=== PATIENT | female | born 1980 ===

== ENCOUNTER 2021-03-08 22:21 | Emergency (ER) | payer OTHER, MEDICAID ==
[~2021-03-08] VITALS: Ht 152.4 cm; Wt 115.6 kg
[~2021-03-08 22:21] MED LIST: HYDR-3241 PO; OMEP40CA8 PO; OXYC1TAB7 PO; POLY17PO5 PO
--- NOTE | 2021-03-09 00:04 | NUR ---
PT AMBULATED TO ROOM, AND C/O PAIN TO LOWER ABD BACK AND SAYS IT RADIATES TO HER ABDOMEN. MD TO BEDSIDE TO EVAL PT.
[2021-03-09] MEDS ORDERED: ONDANSETRON 2MG/ML, 2ML ONE (00:26)
[2021-03-09] MEDS ORDERED: MORPHINE SULFATE 4 MG/ML, 1ML ONE ×2 (00:27→01:37)
[2021-03-09 00:30] LABS: BASOPHILS % (AUTO) 1 % (0-1); EOSINOPHILS % (AUTO) 1 % (1-7); LYMPHOCYTES % (AUTO) 24 % (22-44); MEAN CORPUSCULAR HEMOGLOBIN 23.6 pg (27.0-34.8); MEAN CORPUSCULAR HGB CONC 31.6 g/dL (32.4-35.8); MEAN PLATELET VOLUME 8.2 fL (7.4-10.4); MONOCYTES % (AUTO) 8 % (2-9); NEUTROPHILS % (AUTO) 67 % (42-75); PLATELET COUNT 282 x10^3/uL (130-400); RED BLOOD COUNT 4.46 x10^6/uL (3.82-5.3); RED CELL DISTRIBUTION WIDTH 16.5 % (9.6-15.2)
[2021-03-09] MEDS ORDERED: SODIUM CHLORIDE 0.9% 1,000ML IV ONE (00:30)
[2021-03-09] MEDS ORDERED: SODIUM CHLORIDE FLUSH 10ML SYR IVF ONE (00:30)
[2021-03-09] MEDS ORDERED: ONDANSETRON 2MG/ML, 2ML IVPush ONE (00:30)
[2021-03-09] MEDS: MORPHINE SULFATE 4 MG/ML, 1ML IVPush PRN ×2 (00:40→01:40)
[2021-03-09 00:41] LABS: ALBUMIN 3.5 g/dL (3.4-5.0); ANION GAP 7 mmol/L (5-15); CALCIUM 8.6 mg/dL (8.5-10.1); CHLORIDE 110 mmol/L (98-107); CREATININE 0.81 mg/dL (0.55-1.02)
--- NOTE | 2021-03-09 00:41 | NUR ---
PT PROVIDED VERY SMALL AMOUNT OF URINE AND SAMPLE SENT TO LAB. PT C/O PAIN TO ABDOMEN STILL, AND HAVING DIFFICULTY SITTING STILL. PT AMBULATED TO RESTROOM FOR UA SAMPLE. AFTER, PT WAS MEDICATED FOR PAIN AND NAUSEA, SEE EMAR. PT NOW RESTING COMFORTABLY IN BED WAITING ON LAB RESULTS.
[2021-03-09 00:49] LABS: MICROSCOPIC INDICATED
--- NOTE | 2021-03-09 01:30 | NUR ---
TASK RN: PT RESTING ON GURNEY, NAD, FLUIDS RUNNING, NO OTHER CHANGES IN CONDITION. Patient is resting comfortably in bed. Bed in lowest, rails engaged, call light on lap. SANTY.
--- NOTE | 2021-03-09 01:56 | NUR ---
TASK RN: PT. MEDICATED PER OCT WITH 2ND DOSE OF MORPHINE FOR CONTINUED 10/10 RIGHT FLANK PAIN. STRAIGHT CATH UA COLLECTED AND WALKED TO LAB. PT. TOLERATED WELL.
[2021-03-09 02:20] LABS: MICROSCOPIC NOT IND
--- NOTE | 2021-03-09 02:29 | NUR ---
RECIEVED REPORT FROM MAYE RN
[2021-03-09 03:07] VITALS: BP 148/76
--- NOTE | 2021-03-09 03:14 | NUR ---
Patient given discharge instructions and they have confirmed that they understand the instructions. Patient ambulatory with steady gait. NAD, all questions answered appropriately, denies additional needs at this time. No personal belongings left in room after discharge.
== END 2021-03-09 03:16 | disposition home or self-care (01) ==
LOC: ED 22:51
DX: N13.2 Hydronephrosis with renal and ureteral calculous obstruction (principal); G43.909 Migraine, unspecified, not intractable, without status migrainosus
CPT/HCPCS: 36415; 74176; 80048; 81001; 81003; 82040; 84703; 85025; 87086; 96361; 96374; 96375; 96376; 99284; J2270; J2405; J7030

== ENCOUNTER 2021-03-12 06:53 | Emergency (ER) | payer OTHER, MEDICAID ==
[~2021-03-12] VITALS: Ht 152.4 cm; Wt 115.4 kg
--- NOTE | 2021-03-12 07:55 | NUR ---
PT TO BR FOR URINE SAMPLE
--- NOTE | 2021-03-12 08:05 | NUR ---
PA AT BS FOR EVAL
[2021-03-12] MEDS ORDERED: ONDANSETRON 2MG/ML, 2ML IVPush ONE (08:30)
[2021-03-12] MEDS ORDERED: SODIUM CHLORIDE 0.9% 1,000ML IVBOLUS ONE (08:30)
[2021-03-12] MEDS ORDERED: ONDANSETRON 2MG/ML, 2ML ONE (08:34)
[2021-03-12] MEDS ORDERED: MORPHINE SULFATE 4 MG/ML, 1ML ONE ×2 (08:34→09:53)
[2021-03-12] MEDS: MORPHINE SULFATE 4 MG/ML, 1ML IVPush PRN ×2 (08:36→09:56)
--- NOTE | 2021-03-12 08:36 | NUR ---
PIV PLACED, PT MEDICATED PER EMAR. NADN/VSS. CALL LIGHT WITHIN REACH, BED IN LOWEST POSITION, BED RAILS UP X2
--- NOTE | 2021-03-12 08:38 | NUR ---
PT TO XRAY
[2021-03-12 08:43] LABS: BASOPHILS % (AUTO) 0 % (0-1); EOSINOPHILS % (AUTO) 0 % (1-7); LYMPHOCYTES % (AUTO) 10 % (22-44); MEAN CORPUSCULAR HEMOGLOBIN 23.7 pg (27.0-34.8); MEAN CORPUSCULAR HGB CONC 31.9 g/dL (32.4-35.8); MEAN PLATELET VOLUME 8.2 fL (7.4-10.4); MONOCYTES % (AUTO) 6 % (2-9); NEUTROPHILS % (AUTO) 84 % (42-75); PLATELET COUNT 287 x10^3/uL (130-400); RED BLOOD COUNT 4.44 x10^6/uL (3.82-5.3); RED CELL DISTRIBUTION WIDTH 16.4 % (9.6-15.2)
[2021-03-12 08:55] LABS: ALBUMIN 3.3 g/dL (3.4-5.0); ANION GAP 9 mmol/L (5-15); CALCIUM 8.2 mg/dL (8.5-10.1); CHLORIDE 105 mmol/L (98-107)
[2021-03-12 08:55] LABS: MICROSCOPIC INDICATED
[2021-03-12 08:58] LABS: ALANINE AMINOTRANSFERASE 28 U/L (12-78); ALKALINE PHOSPHATASE 72 U/L (45-117); BILIRUBIN,TOTAL 0.3 mg/dL (0.2-1.0); CREATININE 0.99 mg/dL (0.55-1.02); TOTAL PROTEIN 7.8 g/dL (6.4-8.2)
--- NOTE | 2021-03-12 09:13 | NUR ---
US DONE, PT CONNECTED TO MONITORS. PT STATES SHE FEELS "MUCH BETTER THAN WHEN SHE CAME IN" CALL LIGHT WITHIN REACH, BED IN LOWEST POSITION, BED RAILS UP X2
--- NOTE | 2021-03-12 09:32 | NUR ---
erp at bs
[2021-03-12 10:29] VITALS: BP 155/89
== END 2021-03-12 10:31 | disposition home or self-care (01) ==
LOC: ED 07:01
DX: N23 Unspecified renal colic (principal); G43.909 Migraine, unspecified, not intractable, without status migrainosus; R11.0 Nausea
CPT/HCPCS: 36415; 74018; 76770; 80053; 81001; 83690; 85025; 96361; 96374; 96375; 96376; 99285; J2270; J2405; J7030